=== PATIENT | female | born 1955 | race Caucasian/White ===

== ENCOUNTER 2016-09-17 17:57 | Inpatient (IN) | payer MEDICAID ==
[2016-09-17] MEDS ORDERED: RX INFO: IV CONTRAST WAS GIVEN 1 EACH MISC MISCELLANE PRN (18:29)
[2016-09-17] MEDS ORDERED: HYDROmorphone 1 MG/ML 1 ML SYRINGE IVP STA (18:29)
[2016-09-17] MEDS ORDERED: SODIUM CHLORIDE 0.9% 1,000 ML IV STA (18:29)
--- NOTE | 2016-09-17 18:29 | ED ---
General Adult HPI - General Chief complaint: Fall Stated complaint: Fall Time Seen by Provider: 09/17/16 18:13 Source: patient, EMS, RN notes reviewed Mode of arrival: EMS Limitations: no limitations - History of Present Illness Initial comments: Patient is a pleasant 61-year-old female presenting to the emergency department following a fall. Incident occurred just prior to arrival. Patient was up on a ladder approximately 15 feet. Blood or slid and patient fell. Patient did land on the ladder when she had the ground on the small of her back. Patient states discomfort is moderate to severe of her lower back. Patient has minimal tenderness of her right small finger and upper arm and ankle. Patient was able take a few steps. Loss of control of bowel or bladder. No weakness. No loss of sensation. Patient denies head injury or loss of consciousness. No neck or upper back pain. - Related Data Home Medications Medication Instructions Recorded Confirmed No Known Home Medications [No 09/17/16 09/17/16 Known Home Medications] Allergies Allergy/AdvReac Type Severity Reaction Status Date / Time No Known Allergies Allergy Verified 09/17/16 18:14 Review of Systems ROS Statement: Those systems with pertinent positive or pertinent negative responses have been documented in the HPI. ROS Other: All systems not noted in ROS Statement are negative. Constitutional: Denies: fever Eyes: Denies: eye pain ENT: Denies: ear pain Respiratory: Denies: cough, dyspnea Cardiovascular: Denies: chest pain Endocrine: Denies: fatigue Gastrointestinal: Denies: abdominal pain, nausea, vomiting Genitourinary: Denies: dysuria Musculoskeletal: Reports: as per HPI, back pain Skin: Denies: rash Neurological: Denies: weakness Past Medical History Past Medical History: No Reported History History of Any Multi-Drug Resistant Organisms: None Reported Past Surgical History: No Surgical Hx Reported Past Psychological History: No Psychological Hx Reported Smoking Status: Current every day smoker Past Alcohol Use History: None Reported Past Drug Use History: None Reported General Exam Limitations: no limitations General appearance: alert, in no apparent distress Head exam: Present: atraumatic, normocephalic Eye exam: Present: normal appearance, PERRL ENT exam: Present: normal oropharynx Neck exam: Present: normal inspection. Absent: tenderness Respiratory exam: Present: normal lung sounds bilaterally Cardiovascular Exam: Present: regular rate, normal rhythm GI/Abdominal exam: Present: soft. Absent: tenderness Extremities exam: Present: other (Mild swelling and ecchymosis and tenderness right small finger near the PIP. Minimal tenderness and abrasions right humerus region. Mild swelling and tenderness right medial and lateral ankle.) Back exam: Present: tenderness (Mild tenderness bilateral lower lumbar region). Absent: vertebral tenderness Neurological exam: Present: alert, CN II-XII intact. Absent: motor sensory deficit Psychiatric exam: Present: normal affect, normal mood Skin exam: Present: normal color Course Vital Signs 09/17/16 09/17/16 09/17/16 18:01 19:00 19:49 Temperature 99.3 F 99.1 F Pulse Rate 86 82 76 Respiratory 16 18 20 Rate Blood Pressure 122/59 125/58 111/63 O2 Sat by Pulse 91 L 98 95 Oximetry - Reevaluation(s) Reevaluation #1: 09/17/16 20:57 Orthopedics was paged. Patient was reevaluated and updated. 09/17/16 21:[address] Arthur, who will admit and have Dr. Shea evaluated in the morning. Patient and family were updated. EKG Findings - EKG Comments: EKG Findings:: Sinus rhythm at 80. Sinus arrhythmia. TN 164. QRS 82. QT 406. QTc 460. Normal axis. Normal QRS. Normal ST-T. Medical Decision Making - Lab Data Result diagrams: 09/17/16 18:45 09/17/16 18:45 Lab Results 09/17/16 09/17/16 09/17/16 Range/Units 18:45 18:45 18:45 WBC (3.8-10.6) k/uL RBC (3.80-5.40) m/uL Hgb (11.4-16.0) gm/dL Hct (34.0-46.0) % MCV (80.0-100.0) fL MCH (25.0-35.0) pg MCHC (31.0-37.0) g/dL RDW (11.5-15.5) % Plt Count (150-450) k/uL Neutrophils % % Lymphocytes % % Monocytes % % Eosinophils % % Basophils % % Neutrophils # (1.3-7.7) k/uL Lymphocytes # (1.0-4.8) k/uL Monocytes # (0-1.0) k/uL Eosinophils # (0-0.7) k/uL Basophils # (0-0.2) k/uL PT (9.0-12.0) sec INR (<1.1) APTT (22.0-30.0) sec Sodium 140 (137-145) mmol/L Potassium 3.7 (3.5-5.1) mmol/L Chloride 106 (98-107) mmol/L Carbon Dioxide 26 (22-30) mmol/L Anion Gap 8 mmol/L BUN 8 (7-17) mg/dL Creatinine 0.56 (0.52-1.04) mg/dL Est GFR (MDRD) Af Amer >60 (>60 ml/min/1.73 sqM) Est GFR (MDRD) Non-Af >60 (>60 ml/min/1.73 sqM) Glucose 107 H (74-99) mg/dL Calcium 8.9 (8.4-10.2) mg/dL Total Bilirubin 0.8 (0.2-1.3) mg/dL AST 32 (14-36) U/L ALT 27 (9-52) U/L Alkaline Phosphatase 94 (38-126) U/L Total Creatine Kinase 149 H (30-135) U/L CK-MB (CK-2) 2.1 (0.0-2.4) ng/mL CK-MB (CK-2) Rel Index 1.4 Troponin I <0.012 (0.000-0.034) ng/mL Total Protein 6.5 (6.3-8.2) g/dL Albumin 3.7 (3.5-5.0) g/dL Urine Color Urine Appearance (Clear) Urine pH (5.0-8.0) Ur Specific [place] (1.001-1.035) Urine Protein (Negative) Urine Glucose (UA) (Negative) Urine Ketones (Negative) Urine Blood (Negative) Urine Nitrite (Negative) Urine Bilirubin (Negative) Urine Urobilinogen (<2.0) mg/dL Ur Leukocyte Esterase (Negative) Urine Opiates Screen (NotDetected) Ur Oxycodone Screen (NotDetected) Urine Methadone Screen (NotDetected) Ur Propoxyphene Screen (NotDetected) Ur Barbiturates Screen (NotDetected) U Tricyclic Antidepress (NotDetected) Ur Phencyclidine Scrn (NotDetected) Ur Amphetamines Screen (NotDetected) U Methamphetamines Scrn (NotDetected) U Benzodiazepines Scrn (NotDetected) Urine Cocaine Screen (NotDetected) U Marijuana (THC) Screen (NotDetected) Serum Alcohol <10 mg/dL Blood Type O Negative Blood Type Recheck No Antibody Screen NEGATIVE Spec Expiration Date 09/20/2016234409/17/16 09/17/16 09/17/16 Range/Units 18:45 18:45 20:02 WBC 13.6 H (3.8-10.6) k/uL RBC 4.22 (3.80-5.40) m/uL Hgb 13.6 (11.4-16.0) gm/dL Hct 38.8 (34.0-46.0) % MCV 91.9 (80.0-100.0) fL MCH 32.2 (25.0-35.0) pg MCHC 35.1 (31.0-37.0) g/dL RDW 12.3 (11.5-15.5) % Plt Count 194 (150-450) k/uL Neutrophils % 91 % Lymphocytes % 3 % Monocytes % 4 % Eosinophils % 1 % Basophils % 0 % Neutrophils # 12.4 H (1.3-7.7) k/uL Lymphocytes # 0.4 L (1.0-4.8) k/uL Monocytes # 0.6 (0-1.0) k/uL Eosinophils # 0.1 (0-0.7) k/uL Basophils # 0.0 (0-0.2) k/uL PT 11.2 (9.0-12.0) sec INR 1.1 (<1.1) APTT 22.4 (22.0-30.0) sec Sodium (137-145) mmol/L Potassium (3.5-5.1) mmol/L Chloride (98-107) mmol/L Carbon Dioxide (22-30) mmol/L Anion Gap mmol/L BUN (7-17) mg/dL Creatinine (0.52-1.04) mg/dL Est GFR (MDRD) Af Amer (>60 ml/min/1.73 sqM) Est GFR (MDRD) Non-Af (>60 ml/min/1.73 sqM) Glucose (74-99) mg/dL Calcium (8.4-10.2) mg/dL Total Bilirubin (0.2-1.3) mg/dL AST (14-36) U/L ALT (9-52) U/L Alkaline Phosphatase (38-126) U/L Total Creatine Kinase (30-135) U/L CK-MB (CK-2) (0.0-2.4) ng/mL CK-MB (CK-2) Rel Index Troponin I (0.000-0.034) ng/mL Total Protein (6.3-8.2) g/dL Albumin (3.5-5.0) g/dL Urine Color Light Yellow Urine Appearance Clear (Clear) Urine pH 6.0 (5.0-8.0) Ur Specific [place] >1.050 H (1.001-1.035) Urine Protein Trace H (Negative) Urine Glucose (UA) Negative (Negative) Urine Ketones Trace H (Negative) Urine Blood Negative (Negative) Urine Nitrite Negative (Negative) Urine Bilirubin Negative (Negative) Urine Urobilinogen <2.0 (<2.0) mg/dL Ur Leukocyte Esterase Negative (Negative) Urine Opiates Screen Detected H (NotDetected) Ur Oxycodone Screen Not Detected (NotDetected) Urine Methadone Screen Not Detected (NotDetected) Ur Propoxyphene Screen Not Detected (NotDetected) Ur Barbiturates Screen Not Detected (NotDetected) U Tricyclic Antidepress Not Detected (NotDetected) Ur Phencyclidine Scrn Not Detected (NotDetected) Ur Amphetamines Screen Not Detected (NotDetected) U Methamphetamines Scrn Not Detected (NotDetected) U Benzodiazepines Scrn Not Detected (NotDetected) Urine Cocaine Screen Not Detected (NotDetected) U Marijuana (THC) Screen Not Detected (NotDetected) Serum Alcohol mg/dL Blood Type Blood Type Recheck Antibody Screen Spec Expiration Date - Radiology Data Radiology results: image reviewed (X-ray of the left hand and right ankle show no acute process. Computed tomography scan of the lumbar spine shows superior endplate compression fracture L2 loss of height estimated 30% and 3 mm bony retropulsion. No evidence for involvement of the posterior neural arch. Disc herniation L3-L4 and L4-L5.) Disposition Clinical Impression: Fall, Lumbar burst fracture Disposition: ADMITTED IP TO THIS HOSP Referrals: None,Stated [Primary Care Provider] - 1-2 days Decision Time: 21:24
[2016-09-17 19:00] LABS: Basophils % (A) 0 %; CH 32.6; CHCM 35.7; Eosinophils # (A) 0.1 k/uL (0-0.7); Eosinophils % (A) 1 %; HCT 38.8 % (34.0-46.0); HDW 2.42; HGB 13.6 gm/dL (11.4-16.0); Luc # (Auto) 0.06; Luc % (Auto) 0; Lymphocytes # (A) 0.4 k/uL (1.0-4.8); Lymphocytes % (A) 3 %; MCH 32.2 pg (25.0-35.0); MCHC 35.1 g/dL (31.0-37.0); MCV 91.9 fL (80.0-100.0); Mean Platelet Volume 7.3; Monocytes # (A) 0.6 k/uL (0-1.0); Monocytes % (A) 4 %; Neutrophils # (A) 12.4 k/uL (1.3-7.7); Neutrophils % (A) 91 %; RBC 4.22 m/uL (3.80-5.40); RDW 12.3 % (11.5-15.5); WBC 13.6 k/uL (3.8-10.6); WBC (Perox) 13.64
[2016-09-17 19:09] LABS: ALT 27 U/L (9-52); AST 32 U/L (14-36); Alcohol <10 mg/dL; Alkaline Phosphatase 94 U/L (38-126); Anion Gap 8 mmol/L; Blood Urea Nitrogen 8 mg/dL (7-17); Calcium 8.9 mg/dL (8.4-10.2); Carbon Dioxide 26 mmol/L (22-30); Chloride 106 mmol/L (98-107); Glucose 107 mg/dL (74-99); Non-African American GFR(MDRD) >60 (>60 ml/min/1.73 sqM); Sodium 140 mmol/L (137-145); Total Bilirubin 0.8 mg/dL (0.2-1.3); Total Protein 6.5 g/dL (6.3-8.2)
[2016-09-17 19:10] LABS: INR 1.1 (<1.1); Partial Thromboplastin Time 22.4 sec (22.0-30.0); Potassium 3.7 mmol/L (3.5-5.1); Prothrombin Time 11.2 sec (9.0-12.0)
--- NOTE | 2016-09-17 19:34 | XR ---
EXAMINATION TYPE: XR hand complete RT DATE OF EXAM: 09/17/2016 CLINICAL HISTORY: pain TECHNIQUE: Frontal, lateral and oblique images of the right hand are obtained. COMPARISON: None. FINDINGS: There is no acute fracture/dislocation evident. Severe degenerative changes along the firs t carpal metacarpal joint space. The overlying soft tissue appears unremarkable. IMPRESSION: There is no acute fracture or dislocation ICD 10 NO FRACTURE, INITIAL EVALUATION
[2016-09-17 19:35] LABS: Creatine Kinase 149 U/L (30-135)
--- NOTE | 2016-09-17 19:35 | XR ---
EXAMINATION TYPE: XR ankle complete RT DATE OF EXAM: 09/17/2016 COMPARISON: NONE HISTORY: Pain TECHNIQUE: Frontal, lateral and oblique images of the right ankle are obtained. COMPARISON: None. FINDINGS: There is no acute fracture/dislocation evident. The joint spaces appear within normal jo its. Soft tissue swelling about the ankle. Dorsal calcaneal spurring. IMPRESSION: There is no acute fracture or dislocation seen.
--- NOTE | 2016-09-17 19:36 | XR ---
EXAMINATION TYPE: XR humerus RT DATE OF EXAM: 09/17/2016 CLINICAL HISTORY: pain COMPARISON: NONE TECHNIQUE: Frontal and lateral images of the right humerus are obtained. FINDINGS: There is no acute fracture/dislocation evident. The joint spaces appear within normal limi ts. The overlying soft tissue appears unremarkable. IMPRESSION: There is no acute fracture or dislocation.ICD 10 NO FRACTURE, INITIAL EVALUATION
[2016-09-17 19:42] LABS: Creatine Kinase MB 2.1 ng/mL (0.0-2.4); Troponin I <0.012 ng/mL (0.000-0.034)
--- NOTE | 2016-09-17 20:02 | CT ---
EXAMINATION TYPE: CT cervical spine wo con DATE OF EXAM: 09/17/2016 COMPARISON: NONE HISTORY: Fall from a ladder. neck pain CT DLP: 292.[address] of the cervical spine was performed with bone and soft tissue window settings submitted . Coronal and sagittal reconstruction is obtained. There is normal alignment and prevertebral soft tissues. I do not see evidence for fracture or subluxation. [id number] degenerative change of the cervical disc spaces. Degenerative change of the cervical apophyseal joints. The lung apices are clear IMPRESSION: No evidence for fracture or subluxation of the cervical spine.
--- NOTE | 2016-09-17 20:05 | CT ---
EXAMINATION TYPE: CT ChestAbdPelvis w con DATE OF EXAM: 09/17/2016 COMPARISON: NONE HISTORY: Fall from a ladder. low back pain. CT DLP: 657.7 mGycm CONTRAST: Contrast enhanced Trauma CT of the Chest, Abdomen and Pelvis is performed with IV Contrast, patient i njected with 100 mL of Omnipaque 300. Chest: LUNGS: There is no evidence for pneumothorax. The lungs are clear and free of focal contusion or ate lectasis. No pleural effusion MEDIASTINUM: Thoracic aorta is of normal caliber without CT evidence to suggest traumatic induced ao rtic injury. No mediastinal fluid or blood. No pericardial fluid or cardia abnormality. Remote gran ulomatous disease noted. HILAR STRUCTURES: No evidence for mass. No hilar adenopathy is appreciated. OTHER: No significant abnormality. OSSEOUS: No displaced osseous fractures identified. CT ABDOMEN AND PELVIS FINDINGS: LIVER/GB: No focal laceration, contusion or subcapsular hemorrhage. No calcified gallstones. No s pace occupying hepatic lesion. Biliary tree is of normal caliber. PANCREAS: No evidence for transection. No inflammation. No distinct mass. SPLEEN: No focal laceration, contusion or subcapsular hemorrhage. ADRENALS: No hemorrhage. Bilateral adrenal glandular thickening. KIDNEYS/BLADDER: No focal laceration, contusion or subcapsular hemorrhage. No hydronephrosis. No n ephrolithiasis. No disctinct renal mass. BOWEL: Bowel is intact. No evidence for pneumoperitoneum. GENITAL ORGANS: No gross abnormality. LYMPH NODES: No greater than 1cm abdominal or pelvic lymph nodes areappreciated. AORTA: No traumatic aortic injury visualized. OSSEOUS STRUCTURES: L2 compression fracture. See CT of the lumbar spine for further evaluation. No ad ditional spinal fractures are seen within the [id number]. OTHER: No evidence for hemoperitoneum. IMPRESSION: 1. No evidence for traumatic injury to the chest. 2. No evidence for traumatic injury to the abdomen or pelvis. 3. Compression fracture of L2.
[2016-09-17 20:09] LABS: Appearance,Urine Clear (Clear); Bilirubin,Urine Negative (Negative); Glucose,Urine (UA) Negative (Negative); Ketones,Urine Trace (Negative); Leukocyte Esterase,Urine Negative (Negative); Nitrite,Urine Negative (Negative); Protein,Urine Trace (Negative); UA Billing (MACRO vs. MICRO) CHEM; Urobilinogen,Urine <2.0 mg/dL (<2.0)
--- NOTE | 2016-09-17 20:11 | CT ---
EXAMINATION TYPE: CT lumbar spine w con DATE OF EXAM: 09/17/2016 COMPARISON: NONE HISTORY: Fall from a ladder. low back pain. CT DLP: 657.7 mGycm CONTRAST: Unenhanced CT of the lumbar spine is performed with IV Contrast, patient injected with 100 mL of Omni paque 300. Unenhanced CT of the lumbar spine was performed. Bone and soft tissue window settings are submitted as well as coronal and sagittal reconstructions. L1-L2: Normal disc space height. No disc herniation protrusion or central stenosis. No facet joint arthropathy. No evidence for foraminal encroachment. L2-L3: Superior endplate compression fracture of L2 is acute in nature. There is loss of height of ap proximately 30%. There is mild bony retropulsion identified measuring 3 mm. There is no evidence for involvement of the pedicles or posterior neural arch. Small surrounding paraspinal hematoma is identi fied. Posterior disc bulge noted. L3-L4: Degenerative disc space narrowing mild in degree. Posterocentral disc herniation effaces the ventral thecal sac. Central stenosis is not excluded. L4-L5: Mild degenerative disc space narrowing. Posterior disc bulges disc herniation difficult to exc lude. Effacement of the ventral thecal sac and lateral recess stenosis seen bilaterally. Mild foramin al encroachment. L5-S1: Mild degenerative disc space narrowing. Posterocentral disc bulge without annie herniation. No central stenosis or foraminal encroachment. No paraspinal masses are identified. Lumbar segments are free if fracture. IMPRESSION: 1. Acute superior endplate compression fracture of L2 with loss of height estimated at 30% and 3 mm b james retropulsion. No evidence for involvement of the posterior neural arch. 2. Disc herniation suspected at L3-4 and L4-5. Evaluation of disc spaces is somewhat limited given st reak artifact.
[2016-09-17 20:22] LABS: Specific Gravity,Urine >1.050 (1.001-1.035)
[2016-09-17] MEDS ORDERED: NALOXONE 0.4 MG/ML 1 ML VIAL IV PRN (21:24)
[2016-09-17] MEDS ORDERED: ONDANSETRON 4 MG/2 ML VIAL IVP PRN (21:24)
[2016-09-17] MEDS: HYDROmorphone 1 MG/ML 1 ML SYRINGE IV PRN (22:53)
[2016-09-17] MEDS: SODIUM CHLORIDE 0.9% 1,000 ML IV SCH (22:57)
[2016-09-17 23:14] VITALS: BMI 23.1
[2016-09-18] MEDS: HYDROmorphone 1 MG/ML 1 ML SYRINGE IV PRN ×2 (02:34→06:10)
[2016-09-18] MEDS: HYDROcodone/APAP 5-325MG 1 EACH TAB PO PRN ×2 (07:40→22:27)
[2016-09-18] MEDS: FAMOTIDINE 20 MG TAB PO SCH ×2 (07:40→20:08)
--- NOTE | 2016-09-18 10:24 | P.HPOR ---
<PonceMartha - Last Filed: 09/18/16 10:18> History of Present Illness H&P Date: 09/18/16 Chief Complaint: Lumbar fracture This is a 61-year-old female who fell approximately 15 feet from a ladder yesterday when hanging shutters. She sustained injury to her low back and right ankle. On exam and x-ray in the emergency department she is found to have a fracture to L2. She is admitted to our service for further evaluation and bracing. Past Medical History Past Medical History: No Reported History Additional Past Medical History / Comment(s): previous diverticulitis with colostomy and revision History of Any Multi-Drug Resistant Organisms: None Reported Past Surgical History: Appendectomy Additional Past Surgical History / Comment(s): revision and colostomy Past Anesthesia/Blood Transfusion Reactions: No Reported Reaction Past Psychological History: No Psychological Hx Reported Smoking Status: Current every day smoker Past Alcohol Use History: None Reported Past Drug Use History: None Reported - Past Family History Father Additional Family Medical History / Comment(s): due to alcoholism. Mother Family Medical History: Diabetes Mellitus, Myocardial Infarction (CT) Medications and Allergies Home Medications Medication Instructions Recorded Confirmed Type No Known Home Medications [No 09/17/16 09/17/16 History Known Home Medications] Allergies Allergy/AdvReac Type Severity Reaction Status Date / Time No Known Allergies Allergy Verified 09/17/16 18:14 Physical Examination This is a pleasant 61-year-old female in no acute distress. She is alert and oriented 3. Exam of the head neck reveal no obvious deformity. She has full cervical spine motion without difficulty or pain. There is no pain on palpation about cervical spine or paraspinal musculature. Exam the upper extremities reveals no obvious deformity. There is some ecchymosis to the right upper arm. No erythema or swelling. She has full shoulder, elbow, wrist and finger motion bilaterally. Neurovascular status the upper extremities is intact. Exam of the low back reveals no obvious deformity. There is pain with palpation about the mid to upper lumbar region. Exam of the lower extremities reveals no obvious deformity. There is mild soft tissue swelling about the right ankle. There is pain on palpation about the ATFL. No tenderness over the distal fibula or medial malleolus. She has full ankle motion without difficulty or pain. There is no hip pain with logroll bilaterally. She is able to lift each leg off the bed independently. Neurovascular status to the lower extremities is intact. Results A compression fracture of L2 with 3 mm of retropulsion. No other bony mallet is noted. Right ankle x-rays reveal no fracture or dislocation. Right humerus x-rays reveal no bony abnormality or fracture. - Labs Labs: Abnormal Lab Results - Last 24 Hours (Table) 09/17/16 09/17/16 09/17/16 Range/Units 18:45 18:45 18:45 WBC 13.6 H (3.8-10.6) k/uL Neutrophils # 12.4 H (1.3-7.7) k/uL Lymphocytes # 0.4 L (1.0-4.8) k/uL Glucose 107 H (74-99) mg/dL Total Creatine Kinase 149 H (30-135) U/L Ur Specific [place] (1.001-1.035) Urine Protein (Negative) Urine Ketones (Negative) Urine Opiates Screen (NotDetected) 09/17/16 Range/Units 20:02 WBC (3.8-10.6) k/uL Neutrophils # (1.3-7.7) k/uL Lymphocytes # (1.0-4.8) k/uL Glucose (74-99) mg/dL Total Creatine Kinase (30-135) U/L Ur Specific [place] >1.050 H (1.001-1.035) Urine Protein Trace H (Negative) Urine Ketones Trace H (Negative) Urine Opiates Screen Detected H (NotDetected) H & H 09/17/16 Range/Units 18:45 Hgb 13.6 (11.4-16.0) gm/dL Hct 38.8 (34.0-46.0) % Coagulation 09/17/16 Range/Units 18:45 INR 1.1 (<1.1) Result Diagrams: 09/17/16 18:45 09/17/16 18:45 Assessment and Plan (1) Lumbar burst fracture Status: Acute (2) Closed L2 vertebral fracture Status: Acute (3) Right ankle sprain Status: Acute (4) Contusion of right upper arm Status: Acute Plan: The clinical and radiographic findings are discussed with the patient and her son. I have discussed the case with Dr. Shea as well. He has recommended a [facility] brace for fracture immobilization. I have ordered the brace which will be fitted today. She is to have physical therapy for gait training and ambulation once the brace is fitted. I have offered a lace up ankle brace for the right ankle. The patient would like to try just an Godwin wrap for now. We will see how she does getting up with therapy once the brace arrives. She will most likely be out of work for the next 8 weeks or more depending on how she does. <Theresa Shea - Last Filed: 09/18/16 21:30> Physical Examination Osteopathic Statement: *. No significant issues noted on an osteopathic structural exam other than those noted in the History and Physical/Consult. Results - Labs Labs: H & H 09/17/16 Range/Units 18:45 Hgb 13.6 (11.4-16.0) gm/dL Hct 38.8 (34.0-46.0) % Coagulation 09/17/16 Range/Units 18:45 INR 1.1 (<1.1) Result Diagrams: 09/17/16 18:45 09/17/16 18:45 Assessment and Plan Plan: The patient is seen and examined today at bedside. 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 Unfortunate she sustained a fall from about 15 feet while hanging her shoulders and she fell onto the ladder that she was standing on his it toppled sideways. She denies loss of consciousness. She was able to get up after a period of time and walk to her bedroom where she laid down but then had significant pain and called able is to present to the hospital. I reviewed Martha Ponce H&P and I am in agreement with her history and physical and assessment and plan. Assessment and plan L2 burst fracture, acute and traumatic due to fall from 15 feet from a ladder Multiple blunt trauma at her arm and ankle and right small finger without evidence of fracture but with soft tissue injury Paravertebral muscle spasm with low back pain, acute due to fall The patient has been placed in a [place]aney TLSO which she feels has provided her some stability. She has been able to get up with help out of bed to bedside commode with the brace on but has been not able get out of bed on her own yet. We'll see how she does with increasing her mobility with her brace and pain control as well as with therapy to help her with transfers and mobilization. When she is comfortable with getting in and out of bed and is safe with this and with her ambulation with the brace on it will be okay for me discharge home. I discussed this with her at bedside at length. I discussed the likelihood that we would plan to continue conservative treatment and I discussed the different issues involved with her injury. We discussed other treatment options as well as possibility of kyphoplasty but would like to see if she has continued improvement with bracing before considering surgical intervention. If she is able to be discharged home tomorrow then we could follow her up in this 1 week's time for recheck evaluation. It is likely that she'll need bracing for approximately 3 months and it is likely that she will need to be off work for at least 3-4 months before returning.
[2016-09-18] MEDS: traMADol 50 MG TAB PO PRN ×2 (11:07→17:15)
[2016-09-18] MEDS: SODIUM CHLORIDE 0.9% 1,000 ML IV SCH (20:09)
[2016-09-18] MEDS ORDERED: CYCLOBENZAPRINE 10 MG TAB PO PRN (21:30)
[2016-09-19] MEDS: traMADol 50 MG TAB PO PRN ×3 (03:43→19:44)
[2016-09-19] MEDS: HYDROcodone/APAP 5-325MG 1 EACH TAB PO PRN (08:23)
[2016-09-19] MEDS: FAMOTIDINE 20 MG TAB PO SCH ×2 (08:23→19:44)
--- NOTE | 2016-09-19 10:44 | P.DS ---
<Martha Ponce - Last Filed: 09/19/16 10:42> Providers Date of admission: 09/17/16 21:24 Expected date of discharge: 09/19/16 Attending physician: Eric Arthur Primary care physician: Stated None - Discharge Diagnosis(es) (1) Lumbar burst fracture Status: Acute (2) Closed L2 vertebral fracture Status: Acute (3) Right ankle sprain Status: Acute (4) Contusion of right upper arm Status: Acute Hospital Course: This is a 61-year-old female who is admitted through the emergency department on 09/17/2016 after falling from a ladder and sustaining injury to her low back and right ankle. On exam and x-ray in the emergency department she is found to have an L2 burst fracture as well as a right ankle sprain. She has multiple contusions. The patient was fitted for a [place] TLSO on 09/18/2016. The patient is having physical therapy today for gait training. She is doing fairly well from an orthopedic standpoint. We'll see how she does today with therapy and possibly discharged to home. Plan - Discharge Summary New Discharge Prescriptions: New HYDROcodone/APAP 5-325MG [[place] 5-325] 1 - 2 each PO Q4-6H PRN #90 tab PRN Reason: Moderate Pain traMADol HCL [Ultram] 50 mg PO Q6HR PRN #90 tab PRN Reason: Pain Discharge Medication List HYDROcodone/APAP 5-325MG [[place]affey 5-325] 1 - 2 each PO Q4-6H PRN #90 tab 09/19/16 [Rx] traMADol HCL [Ultram] 50 mg PO Q6HR PRN #90 tab 09/19/16 [Rx] Follow up Appointment(s)/Referral(s): Theresa Shea DO [Doctor of Osteopathic Medicine] - 09/25/16 8:00 am () None,Stated [Primary Care Provider] - 1-2 days Patient Instructions/Handouts: Hydrocodone/Acetaminophen (By mouth), Tramadol ( By mouth), Ankle Sprain (DC), Vertebral Compression Fracture (DC) Activity/Diet/Wound Care/Special Instructions: [facility] - [phone] - to be delivered to room prior to discharge TLSO brace to be worn whenever out of bed or elevated more than 45. May remove for bathing. Avoid heavy or rigorous activity. May ambulate with brace intact. No repetitive bending twisting or lifting. Discharge Disposition: HOME SELF-CARE <Theresa Shea - Last Filed: 09/20/16 13:55> Hospital Course: The patient was seen and examined today on 09/20/2016. She has been doing well overnight has been able to make good progress with her pain control and her mobility. She has not yet had a bowel movement but she is passing gas and she does not feel overly bloated. She is tolerating her diet without any nausea or vomiting. Her back pain is doing better and she is becoming more mobile. She likes using her brace when she is up. It is okay for her to lay down flat and to lay on her side if she wishes. I again went through her activity status and discussed her pain control and mobility using the brace. I answered her questions best my ability and she understands. I'll plan see her back in this 1 week's time for recheck evaluation or sooner if she is having any problems. She is sent home with the appropriate prescriptions for pain control as well as her brace and a prescription for a walker.
[2016-09-19] MEDS ORDERED: MAGNESIUM HYDROXIDE 2,400 MG/10 ML CUP PO PRN (17:24)
[2016-09-19] MEDS: DOCUSATE 100 MG CAP PO SCH (17:38)
[2016-09-19 21:47] VITALS: RESP 16
[2016-09-19] MEDS: SODIUM CHLORIDE 0.9% 1,000 ML IV SCH (23:09)
[2016-09-20] MEDS: traMADol 50 MG TAB PO PRN ×2 (04:12→11:02)
[2016-09-20 07:57] VITALS: BP 108/65; PULSE 104; TEMP 98.3
[2016-09-20] MEDS: DOCUSATE 100 MG CAP PO SCH (08:23)
[2016-09-20] MEDS: FAMOTIDINE 20 MG TAB PO SCH (08:23)
== END 2016-09-20 13:10 | disposition home or self-care (01) | DRG 552 ==
LOC: EC 17:57 → 5MS5E 21:24
PROVIDERS: ADMIT Orthopaedic Surgery; ATTEND Orthopaedic Surgery
PROC: 2W35X3Z Immobilization of Back using Brace (ICD-10-PCS; principal; 2016-09-17)
DX: S32.021A Stable burst fracture of second lumbar vertebra, initial encounter for closed fracture (principal); F17.200 Nicotine dependence, unspecified, uncomplicated; M62.838 Other muscle spasm; S60.051A Contusion of right little finger without damage to nail, initial encounter; I49.9 Cardiac arrhythmia, unspecified; S93.401A Sprain of unspecified ligament of right ankle, initial encounter; S40.021A Contusion of right upper arm, initial encounter; Z90.49 Acquired absence of other specified parts of digestive tract; Z83.3 Family history of diabetes mellitus; Z86.19 Personal history of other infectious and parasitic diseases; Z87.19 Personal history of other diseases of the digestive system; Z82.49 Family history of ischemic heart disease and other diseases of the circulatory system; Z81.1 Family history of alcohol abuse and dependence; W11.XXXA Fall on and from ladder, initial encounter; Y93.H3 Activity, building and construction; Y92.007 Garden or yard of unspecified non-institutional (private) residence as the place of occurrence of the external cause
CPT/HCPCS: 36415; 71260; 72125; 72132; 74177; 80053; 80306; 80320; 81003; 82550; 82553; 84484; 85025; 85610; 85730; 86850; 86900; 86901; 93005; 94760

== ENCOUNTER → 2016-10-27 | Outpatient (CLI) | payer MEDICAID ==
--- NOTE | 2016-10-27 14:40 | XR ---
Lumbar spine HISTORY: Compression fracture L2 Correlation to CT lumbar spine 09/17/2016, 3 views of the lumbar spine Central compression deformity at L2 is noted loss of height approximately 50% as noted on CT. Minimal retropulsion is stable. Multilevel spondylosis is present. Bone mineralization is reduced. Kyphosis centered at L2 is noted incidentally. Dextroscoliosis also seen. IMPRESSION: Findings compatible with patient's history
== END | disposition home or self-care (01) ==
LOC: RADXRMAIN 11:45
PROVIDERS: ATTEND Orthopaedic Surgery Orthopaedic Surgery of the Spine
DX: S32.020S Wedge compression fracture of second lumbar vertebra, sequela (principal)
CPT/HCPCS: 72100

== ENCOUNTER → 2016-11-24 | Outpatient (CLI) | payer MEDICAID ==
--- NOTE | 2016-11-24 11:10 | XR ---
Lumbar spine HISTORY: Compression fracture 3 views of the lumbar spine correlated to prior lumbar spine 10/27/2016 Compression deformity at L2 stable. There is a dextroscoliosis centered at L2. Lumbar vertebral allen s show stable alignment. Minimal retropulsion L2 suspected. There is multilevel spondylosis most loss of disc height at the intervertebral levels. Bone mineralization is reduced. Sclerosis present in th e posterior elements of the lumbar spine. IMPRESSION: Stable L2 compression fracture, osteopenia, degenerative disc disease and facet arthropat hy.
== END | disposition home or self-care (01) ==
LOC: RADXRMAIN 09:39
PROVIDERS: ATTEND Physician Assistant
DX: S32.020A Wedge compression fracture of second lumbar vertebra, initial encounter for closed fracture (principal); M85.88 Other specified disorders of bone density and structure, other site; M51.36 Other intervertebral disc degeneration, lumbar region; M46.06 Spinal enthesopathy, lumbar region
CPT/HCPCS: 72100

== ENCOUNTER → 2017-02-05 | Outpatient (CLI) | payer MEDICAID ==
--- NOTE | 2017-02-05 15:32 | XR ---
Lumbar spine HISTORY: Compression fracture 3 views of the lumbar spine correlated to prior exam 11/24/2016 Compression fracture at L2 is again noted. There is a dextroscoliosis centered at L2. Bone mineraliza tion is stable. Alignment is unchanged. Sclerosis present in the posterior elements of the lumbar spi ne. There is multilevel spondylosis, loss of disc height at the intervertebral levels. IMPRESSION: Stable exam. Osteoporotic compression fracture L2. Degenerative disc disease, facet arthr opathy and scoliosis.
== END | disposition home or self-care (01) ==
LOC: RADXRMAIN 11:51
PROVIDERS: ATTEND Physician Assistant
DX: S32.029A Unspecified fracture of second lumbar vertebra, initial encounter for closed fracture (principal); M51.36 Other intervertebral disc degeneration, lumbar region; M46.86 Other specified inflammatory spondylopathies, lumbar region; M41.9 Scoliosis, unspecified
CPT/HCPCS: 72100

== ENCOUNTER → 2017-06-05 | Outpatient (CLI) | payer MEDICAID ==
--- NOTE | 2017-06-05 22:13 | CT ---
EXAMINATION TYPE: CT abdomen pelvis w con DATE OF EXAM: 06/05/2017 HISTORY: RLQ and flank pain. Abdominal tenderness. CT DLP: 476.8mGycm Automated Exposure Control for Dose Reduction was Utilized. CONTRAST: CT scan of the abdomen and pelvis is performed with oral and with IV Contrast, patient injected with 100ml mL of Omnipaque 300. COMPARISON: CT chest abdomen and pelvis September 17, 2016. FINDINGS: LUNG BASES: No significant abnormality is appreciated. LIVER/GB: No significant abnormality is appreciated. PANCREAS: No significant abnormality is seen. SPLEEN: A few calcifications are redemonstrated scattered throughout the spleen. ADRENALS: Slight thickening to both adrenal glands favors benign hyperplasia this is unchanged from p rior. KIDNEYS: No significant abnormality is seen. BOWEL: There is nonspecific mild wall thickening of distal esophagus.. There is adjacent stable promi nent but subcentimeter 8 x 6 mm paraesophageal lymph node on axial image 12. There are subcentimeter calcified periesophageal lymph node superior to this redemonstrated. There is no suspicious small or large bowel dilatation. Oral contrast reaches level of left colon. There is some focal prominence of the cecum. Terminal ileum is felt within normal limits. A few scattered colonic diverticula are ident ified. There is no convincing CT evidence for acute diverticulitis. UTERUS/ADNEXA: Retroverted uterus is seen. LYMPH NODES: No greater than 1cm abdominal or pelvic lymph nodes are appreciated. There are prominent but subcentimeter external iliac and groin lymph nodes bilaterally. There are prominent but subcenti meter retroperitoneal lymph nodes. OSSEOUS STRUCTURES: There is now mild to moderate compression type fracture deformity L2 level with d iffuse sclerosis. There is nonspecific diffuse sclerosis involving superior L1 endplate. OTHER: No significant additional abnormality is seen. IMPRESSION: No significant finding is seen to account for patient's clinical symptoms of right lower quadrant and right flank pain. Interval progression with now mild to moderate chronic compression fra cture L2 level.
== END | disposition home or self-care (01) ==
LOC: RADCTMAIN 15:51
PROVIDERS: ATTEND Physician Assistant
DX: R10.813 Right lower quadrant abdominal tenderness (principal)
CPT/HCPCS: 74177; Q9967